=== PATIENT | male | born 1950 | race Caucasian/White ===

== ENCOUNTER 2018-03-02 16:53 | Inpatient (IN) | payer MEDICARE ==
[~2018-03-02] VITALS: Ht 182.9 cm; Wt 88.9 kg
[2018-03-02] MEDS ORDERED: SODIUM CHLORIDE 0.9% 1,000ML IVBOLUS ONE (17:30)
--- NOTE | 2018-03-02 17:36 | NUR ---
RECTAL TEMP 94.6. GUAIC NEGATIVE. PT REMAINS COOL AND HYPOTENSIVE. 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 ADD'L 1 L INITIATED NOW VIA HOT LINE FLUID WARMER. BEAR HUGGER IN PLACE. COLOR IMPROVING. SKIN IS COOL, BUT DRY. BP 94/50, MAP 70. HR 73 A FIB.
--- NOTE | 2018-03-02 17:44 | NUR ---
LABS, INCLUDING BS X2 DRAWN AT THIS TIME.
[2018-03-02] MEDS ORDERED: CARV12.52 PO (17:47)
[2018-03-02] MEDS ORDERED: AMLO10TA6 PO (17:47)
[2018-03-02] MEDS ORDERED: DABI75CA3 PO (17:47)
--- NOTE | 2018-03-02 17:47 | NUR ---
FAMILY TO GO HOME AND OBTAIN MED NAMES AND DOSES.
--- NOTE | 2018-03-02 18:01 | NUR ---
PT ATTEMPTED TO PRODUCE URINE SAMPLE. SO FAR UNABLE. TEMP IMPROVED WITH WARMED FLUIDS AND BEAR HUGGER WARMER. BP REMAINS LOW AT 95/48, BUT MAP IS ADEQUATE AT 70. PT IS AXOX4. TALKATIVE, CHEERFUL. COLOR HAS IMPROVED WITH TEMP. CHEEKS AND LIPS NOW PINK, BUT CONJUNCTIVA REMAINS PALE AND CAP REFILL IS DELAYED IN FINGER TIPS AND TOES. PT FREQUENTLY CLEAR THROAT AND NOSE, BUT DENIES SINUS PRESSURE. NO COUHGING HAS BEEN OBSERVED SINCE ARRIVAL. HOWEVER, PT REPORTS PRODUCTIVE COUGH X >1 MO, AND ALSO C/O UMBILICAL PAIN WITH COUGHING. HERNIA PRESENT EASILY REDUCES.
[2018-03-02 18:23] LABS: INTERNATIONAL NORMALIZED RATIO 1.33 (0.93-1.1); PROTHROMBIN TIME 13.9 Seconds (9.6-11.5)
[2018-03-02 18:28] LABS: ALANINE AMINOTRANSFERASE 15 U/L (12-78); ALBUMIN 3.5 g/dL (3.4-5.0); ANION GAP 9 mmol/L (5-15); CALCIUM 8.2 mg/dL (8.5-10.1); CHLORIDE 110 mmol/L (98-107)
[2018-03-02 18:37] LABS: MEAN CORPUSCULAR HEMOGLOBIN 15.1 pg (27.5-34.5); MEAN PLATELET VOLUME 8.8 fL (7.4-10.4); PLATELET COUNT 499 x10^3/uL (130-400); RED BLOOD COUNT 3.22 x10^6/uL (4.38-5.82); RED CELL DISTRIBUTION WIDTH 23.2 % (9.4-14.8)
[2018-03-02 18:38] LABS: ALKALINE PHOSPHATASE 73 U/L (45-117); BILIRUBIN,TOTAL 0.4 mg/dL (0.2-1.0); TOTAL PROTEIN 6.7 g/dL (6.4-8.2)
[2018-03-02 18:39] LABS: MEAN CORPUSCULAR HGB CONC 27.9 g/dL (33.2-36.2)
--- NOTE | 2018-03-02 18:39 | NUR ---
Hgb 4.9 Hct 17.4, Dr Eisenberg informed
[2018-03-02] MEDS ORDERED: CEFTRIAXONE PMX 2GM/50ML 50 ML ONE (18:48)
[2018-03-02 18:55] LABS: BASOPHILS % (AUTO) 0 % (0-1); EOSINOPHILS # (AUTO) 0.09 x10^3/uL (0-0.4); EOSINOPHILS % (AUTO) 1 % (1-7); LYMPHOCYTES # (AUTO) 0.88 x10^3/uL (1-3.4); LYMPHOCYTES % (AUTO) 6 % (22-44); MD MORPH REVIEW ONLY; MONOCYTES # (AUTO) 0.63 x10^3/uL (0.2-0.8); MONOCYTES % (AUTO) 4 % (2-9); NEUTROPHILS # (AUTO) 13.96 x10^3/uL (1.8-6.8); NEUTROPHILS % (AUTO) 90 % (42-75)
[2018-03-02 18:56] LABS: ANISOCYTOSIS 2+; HYPOCHROMIA 3+; MICROCYTOSIS 3+
[2018-03-02 18:58] LABS: OVALOCYTES 1+; POLYCHROMASIA 1+; TEAR DROPS 1+
[2018-03-02] MEDS ORDERED: AZITHROMYCIN 500 MG in SODIUM CHLORIDE 0.9% 250 ML IV ONE (19:00)
[2018-03-02] MEDS ORDERED: SODIUM CHLORIDE 0.9%, 250ML IVBOLUS ONE (19:00)
[2018-03-02] MEDS ORDERED: CEFTRIAXONE PMX 2GM/50ML 50 ML IV ONE (19:00)
[2018-03-02 19:01] LABS: <PLATELET ESTIMATE> INCREASED; ACANTHOCYTES 1+; LARGE PLATELETS 1+
--- NOTE | 2018-03-02 19:02 | NUR ---
2ND ABX STARTED. DR CASTRO TO BS TO REVIEW RESULTS WITH PT AND FAMILY AT BS. PT AGREES TO BLOOD TRANSFUSION. PT TO CT NOW
[2018-03-02] MEDS ORDERED: POTA10TA6 PO (19:14)
[2018-03-02] MEDS ORDERED: IRBE300T40 PO (19:14)
[2018-03-02 19:15] LABS: SCHISTOCYTES 1+
[2018-03-02] MEDS ORDERED: CART1TAB5 PO (19:24)
[2018-03-02] MEDS ORDERED: HYDR12.547 PO (19:24)
[2018-03-02 19:26] VITALS: BP 110/59
--- NOTE | 2018-03-02 19:31 | NUR ---
BLOOD TRANSFUSION INITIATED. ASHWINI GOODE APN TO BS FOR ADMISSION.
[2018-03-02 19:39] VITALS: BP 114/65
--- NOTE | 2018-03-02 19:51 | NUR ---
PT REMAINS TALKATIVE AND INTERACTIVE. VS IMPROVING. NO S/SX OF TRANSFUSION RXN.
[2018-03-02] MEDS ORDERED: SODIUM CHLORIDE 0.9% 1,000 ML IV SCH (19:57)
[2018-03-02] MEDS ORDERED: ACETAMINOPHEN 325 MG TABLET PO PRN (20:00)
[2018-03-02] MEDS ORDERED: POLYETHYLENE GLYCOL 17 GM PACKET PO PRN (20:00)
[2018-03-02] MEDS ORDERED: GUAIFENESIN/DM 200-20MG, 10ML UDC PO PRN (20:00)
[2018-03-02] MEDS ORDERED: ONDANSETRON ODT 4 MG PO PRN (20:00)
[2018-03-02] MEDS ORDERED: BISACODYL 10 MG SUPP PR PRN (20:00)
[2018-03-02 20:30] LABS: RAPID INFLUENZA A Negative (Negative); RAPID INFLUENZA B Negative (Negative)
--- NOTE | 2018-03-02 20:30 | NUR ---
CALLING REPORT TO PREETHI SALGUERO.
--- NOTE | 2018-03-02 20:36 | NUR ---
REPORT GIVEN TO PREETHI SALGUERO. PT READY FOR TRANSPORT. 1ST UNIT [facility] STILL INFUSING UPON TRANSPORT.
[2018-03-02 20:55] VITALS: BP 106/66
[2018-03-02 21:14] VITALS: BP 106/66
[2018-03-02] MEDS: DABIGATRAN 150 MG CAPSULE PO SCH (22:27)
[2018-03-02 22:48] LABS: MICROSCOPIC NOT IND
[2018-03-02 22:49] VITALS: BP 100/61
[2018-03-02 22:57] LABS: CULTURE INDICATED? NO
[2018-03-02 23:20] VITALS: BP 100/66
[2018-03-03] VITALS (12 sets, daily range): BP systolic 105–123; BP diastolic 64–107
[2018-03-03] MEDS ORDERED: FLU VAC QS18-19(4YR UP)CEL/PF 0.5ML IM-VACC ONE (01:30)
[2018-03-03 06:17] LABS: MEAN CORPUSCULAR HEMOGLOBIN 19.9 pg (27.5-34.5); MEAN CORPUSCULAR HGB CONC 30.8 g/dL (33.2-36.2); MEAN CORPUSCULAR VOLUME 64.5 fL (81-97); MEAN PLATELET VOLUME 8.7 fL (7.4-10.4); PLATELET COUNT 388 x10^3/uL (130-400); RED BLOOD COUNT 3.91 x10^6/uL (4.38-5.82)
[2018-03-03 06:21] LABS: ALANINE AMINOTRANSFERASE 16 U/L (12-78); ALBUMIN 3.4 g/dL (3.4-5.0); ANION GAP 9 mmol/L (5-15); CALCIUM 7.9 mg/dL (8.5-10.1); CHLORIDE 109 mmol/L (98-107); CREATININE 1.55 mg/dL (0.7-1.3)
[2018-03-03 06:26] LABS: ALKALINE PHOSPHATASE 72 U/L (45-117); BILIRUBIN,TOTAL 1.6 mg/dL (0.2-1.0); TOTAL PROTEIN 6.6 g/dL (6.4-8.2); TROPONIN I < 0.015 ng/mL (0.000-0.045)
[2018-03-03 06:30] LABS: BASOPHILS % (AUTO) 0 % (0-1); EOSINOPHILS # (AUTO) 0.23 x10^3/uL (0-0.4); EOSINOPHILS % (AUTO) 3 % (1-7); LYMPHOCYTES # (AUTO) 1.03 x10^3/uL (1-3.4); LYMPHOCYTES % (AUTO) 11 % (22-44); MD SCAN; MONOCYTES # (AUTO) 0.77 x10^3/uL (0.2-0.8); MONOCYTES % (AUTO) 9 % (2-9); NEUTROPHILS # (AUTO) 6.97 x10^3/uL (1.8-6.8); NEUTROPHILS % (AUTO) 77 % (42-75)
[2018-03-03] MEDS: ASCORBIC ACID 500 MG TABLET PO SCH (08:41)
[2018-03-03] MEDS: IRON SUCROSE COMPLEX 100MG/5ML IV SCH (08:41)
[2018-03-03] MEDS: DABIGATRAN 150 MG CAPSULE PO SCH ×2 (08:41→21:25)
[2018-03-03] MEDS: DOCUSATE 100 MG CAPSULE PO SCH ×2 (08:42→21:00)
[2018-03-03] MEDS: SENNA/DOCUSATE TABLET PO SCH (08:42)
[2018-03-03] MEDS: POTASSIUM CHLORIDE 20 MEQ TAB.ER.PRT PO SCH (08:42)
[2018-03-03 09:34] LABS: CREATININE,URINE RANDOM 55.5 mg/dL
[2018-03-03 10:25] LABS: OCCULT BLOOD NEGATIVE (NEGATIVE)
[2018-03-03 11:41] LABS: TROPONIN I < 0.015 ng/mL (0.000-0.045)
[2018-03-03] MEDS: SODIUM CHLORIDE 0.9% 1,000 ML IV SCH ×2 (13:04→19:21)
[2018-03-04 02:00] VITALS: BP 138/84
[2018-03-04] MEDS: SODIUM CHLORIDE 0.9% 1,000 ML IV SCH ×4 (02:42→22:37)
[2018-03-04 06:15] LABS: ANION GAP 8 mmol/L (5-15); CALCIUM 8.1 mg/dL (8.5-10.1); CHLORIDE 111 mmol/L (98-107); CREATININE 1.18 mg/dL (0.7-1.3)
[2018-03-04 06:23] LABS: MEAN CORPUSCULAR HEMOGLOBIN 19.6 pg (27.5-34.5); MEAN CORPUSCULAR HGB CONC 30.4 g/dL (33.2-36.2); MEAN CORPUSCULAR VOLUME 64.4 fL (81-97); MEAN PLATELET VOLUME 8.7 fL (7.4-10.4); PLATELET COUNT 435 x10^3/uL (130-400); RED BLOOD COUNT 4.22 x10^6/uL (4.38-5.82); RED CELL DISTRIBUTION WIDTH 35.7 % (9.4-14.8)
[2018-03-04 07:19] LABS: ACANTHOCYTES 1+; ANISOCYTOSIS 3+; BASOPHILS % (AUTO) 0 % (0-1); EOSINOPHILS # (AUTO) 0.19 x10^3/uL (0-0.4); EOSINOPHILS % (AUTO) 2 % (1-7); HYPOCHROMIA 2+; LYMPHOCYTES # (AUTO) 0.66 x10^3/uL (1-3.4); LYMPHOCYTES % (AUTO) 7 % (22-44); MD MORPH REVIEW ONLY; MICROCYTOSIS 2+; MONOCYTES # (AUTO) 0.59 x10^3/uL (0.2-0.8); MONOCYTES % (AUTO) 6 % (2-9); NEUTROPHILS # (AUTO) 8.26 x10^3/uL (1.8-6.8); NEUTROPHILS % (AUTO) 85 % (42-75); OVALOCYTES 1+; POLYCHROMASIA 1+; SCHISTOCYTES 1+; TEAR DROPS 1+
[2018-03-04 07:20] LABS: <PLATELET ESTIMATE> INCREASED; <PLT MORPHOLOGY> NORMAL PLT MORPH
[2018-03-04 08:07] VITALS: BP 137/75
[2018-03-04] MEDS: DOCUSATE 100 MG CAPSULE PO SCH ×2 (09:00→20:22)
[2018-03-04] MEDS: SENNA/DOCUSATE TABLET PO SCH (09:00)
[2018-03-04] MEDS: IRON SUCROSE COMPLEX 100MG/5ML IV SCH (09:39)
[2018-03-04] MEDS: ASCORBIC ACID 500 MG TABLET PO SCH (09:40)
[2018-03-04] MEDS: POTASSIUM CHLORIDE 20 MEQ TAB.ER.PRT PO SCH (09:40)
[2018-03-04] MEDS: DABIGATRAN 150 MG CAPSULE PO SCH (09:40)
[2018-03-04] MEDS: CARVEDILOL 12.5 MG TABLET PO SCH ×2 (11:35→17:40)
[2018-03-04] MEDS: PANTOPRAZOLE 40 MG IV IVPush SCH (14:00)
[2018-03-04 14:15] VITALS: BP 118/81
[2018-03-04 20:00] VITALS: BP 126/83
[2018-03-04] MEDS: DIPHENHYDRAMINE 25 MG CAPSULE PO PRN (22:37)
[2018-03-05] MEDS: PANTOPRAZOLE 40 MG IV IVPush SCH ×2 (01:33→14:00)
[2018-03-05 02:00] VITALS: BP 143/83
[2018-03-05] MEDS: SODIUM CHLORIDE 0.9% 1,000 ML IV SCH ×2 (05:25→11:27)
[2018-03-05 05:29] VITALS: BP 151/83
[2018-03-05] MEDS: CARVEDILOL 12.5 MG TABLET PO SCH ×2 (05:30→17:38)
[2018-03-05 06:14] LABS: MEAN CORPUSCULAR HEMOGLOBIN 19.6 pg (27.5-34.5); MEAN CORPUSCULAR HGB CONC 30.1 g/dL (33.2-36.2); MEAN PLATELET VOLUME 9.5 fL (7.4-10.4); PLATELET COUNT 438 x10^3/uL (130-400); RED BLOOD COUNT 3.93 x10^6/uL (4.38-5.82); RED CELL DISTRIBUTION WIDTH 36.6 % (9.4-14.8)
[2018-03-05 06:21] LABS: CHLORIDE 112 mmol/L (98-107)
[2018-03-05 06:28] LABS: ALANINE AMINOTRANSFERASE 15 U/L (12-78); ALBUMIN 3.4 g/dL (3.4-5.0); ALKALINE PHOSPHATASE 74 U/L (45-117); ANION GAP 6 mmol/L (5-15); BILIRUBIN,TOTAL 0.9 mg/dL (0.2-1.0); CALCIUM 7.7 mg/dL (8.5-10.1); CREATININE 1.18 mg/dL (0.7-1.3); TOTAL PROTEIN 6.2 g/dL (6.4-8.2)
[2018-03-05 06:40] LABS: BASOPHILS % (AUTO) 0 % (0-1); EOSINOPHILS # (AUTO) 0.26 x10^3/uL (0-0.4); EOSINOPHILS % (AUTO) 3 % (1-7); LYMPHOCYTES # (AUTO) 0.84 x10^3/uL (1-3.4); LYMPHOCYTES % (AUTO) 11 % (22-44); MD SCAN; MONOCYTES # (AUTO) 0.65 x10^3/uL (0.2-0.8); MONOCYTES % (AUTO) 8 % (2-9); NEUTROPHILS # (AUTO) 6.15 x10^3/uL (1.8-6.8); NEUTROPHILS % (AUTO) 78 % (42-75)
[2018-03-05] MEDS: SENNA/DOCUSATE TABLET PO SCH (07:56)
[2018-03-05] MEDS: DOCUSATE 100 MG CAPSULE PO SCH ×2 (07:56→21:00)
[2018-03-05 07:57] VITALS: BP 124/74
[2018-03-05] MEDS: IRON SUCROSE COMPLEX 100MG/5ML IV SCH (09:20)
[2018-03-05] MEDS: ASCORBIC ACID 500 MG TABLET PO SCH (09:20)
[2018-03-05] MEDS: POTASSIUM CHLORIDE 20 MEQ TAB.ER.PRT PO SCH (09:20)
[2018-03-05 14:37] VITALS: BP 130/87
[2018-03-05] MEDS ORDERED: GOLYTELY 4,000ML ORAL.SOL PO ONE (18:00)
[2018-03-05 20:00] VITALS: BP 143/81
[2018-03-05] MEDS: DIPHENHYDRAMINE 25 MG CAPSULE PO PRN (22:10)
[2018-03-06 02:00] VITALS: BP 103/64
[2018-03-06] MEDS: PANTOPRAZOLE 40 MG IV IVPush SCH ×2 (02:14→14:26)
[2018-03-06 06:20] LABS: MEAN CORPUSCULAR HEMOGLOBIN 20.1 pg (27.5-34.5); MEAN CORPUSCULAR HGB CONC 30.2 g/dL (33.2-36.2); MEAN CORPUSCULAR VOLUME 66.3 fL (81-97); RED BLOOD COUNT 3.85 x10^6/uL (4.38-5.82)
[2018-03-06 06:22] LABS: CHLORIDE 113 mmol/L (98-107)
[2018-03-06 06:30] LABS: ANION GAP 8 mmol/L (5-15); CREATININE 1.13 mg/dL (0.7-1.3)
[2018-03-06 06:47] LABS: BASOPHILS # (AUTO) 0.06 x10^3/uL (0-0.1); BASOPHILS % (AUTO) 1 % (0-1); EOSINOPHILS # (AUTO) 0.26 x10^3/uL (0-0.4); EOSINOPHILS % (AUTO) 4 % (1-7); LYMPHOCYTES # (AUTO) 0.97 x10^3/uL (1-3.4); LYMPHOCYTES % (AUTO) 16 % (22-44); MD SCAN; MEAN PLATELET VOLUME 9.5 fL (7.4-10.4); MONOCYTES # (AUTO) 0.73 x10^3/uL (0.2-0.8); MONOCYTES % (AUTO) 12 % (2-9); NEUTROPHILS # (AUTO) 4.01 x10^3/uL (1.8-6.8); NEUTROPHILS % (AUTO) 66 % (42-75); PLATELET COUNT 400 x10^3/uL (130-400)
[2018-03-06] MEDS: DOCUSATE 100 MG CAPSULE PO SCH (06:59)
[2018-03-06] MEDS: SENNA/DOCUSATE TABLET PO SCH (07:00)
[2018-03-06] MEDS: POTASSIUM CHLORIDE 20 MEQ TAB.ER.PRT PO SCH (07:00)
[2018-03-06] MEDS: ASCORBIC ACID 500 MG TABLET PO SCH (07:00)
[2018-03-06] MEDS ORDERED: MIDAZOLAM 1 MG/ML, 5ML ONE ×2 (07:10)
[2018-03-06] MEDS ORDERED: FENTANYL PF 100 MCG/2ML ONE (07:10)
[2018-03-06] MEDS: CARVEDILOL 12.5 MG TABLET PO SCH (07:40)
[2018-03-06] MEDS: IRON SUCROSE COMPLEX 100MG/5ML IV SCH (07:40)
[2018-03-06] MEDS ORDERED: SODIUM CHLORIDE 0.9% 1,000 ML IV SCH (08:30)
[2018-03-06 09:43] VITALS: BP 135/87
[2018-03-06 13:21] VITALS: BP 130/81
[2018-03-06] MEDS ORDERED: OMEP-110 PO (15:15)
[2018-03-06] MEDS ORDERED: IRON1TAB37 PO (16:05)
== END 2018-03-06 17:04 | disposition home or self-care (01) | DRG 871 ==
LOC: ED 19:48 → EDIP 19:49 → 4EST 20:47
PROVIDERS: ADMIT Internal Medicine; ATTEND Internal Medicine
PROC: 30233N1 Transfusion of Nonautologous Red Blood Cells into Peripheral Vein, Percutaneous Approach (ICD-10-PCS; principal; 2018-03-02)
PROC: 0DB98ZX Excision of Duodenum, Via Natural or Artificial Opening Endoscopic, Diagnostic (ICD-10-PCS; 2018-03-02)
PROC: 0DB58ZX Excision of Esophagus, Via Natural or Artificial Opening Endoscopic, Diagnostic (ICD-10-PCS; 2018-03-02)
DX: A41.9 Sepsis, unspecified organism (principal); N17.0 Acute kidney failure with tubular necrosis; R65.21 Severe sepsis with septic shock; D68.69 Other thrombophilia; E87.2 Acidosis; D68.32 Hemorrhagic disorder due to extrinsic circulating anticoagulants; J98.11 Atelectasis; D50.9 Iron deficiency anemia, unspecified; K20.9 Esophagitis, unspecified; I10 Essential (primary) hypertension; T68.XXXA Hypothermia, initial encounter; D47.3 Essential (hemorrhagic) thrombocythemia; I48.2 Chronic atrial fibrillation; T45.515A Adverse effect of anticoagulants, initial encounter; I95.9 Hypotension, unspecified; E86.0 Dehydration; E03.9 Hypothyroidism, unspecified; F17.210 Nicotine dependence, cigarettes, uncomplicated; J06.9 Acute upper respiratory infection, unspecified; K44.9 Diaphragmatic hernia without obstruction or gangrene; Z83.3 Family history of diabetes mellitus; Z82.49 Family history of ischemic heart disease and other diseases of the circulatory system; Z80.3 Family history of malignant neoplasm of breast; Y92.89 Other specified places as the place of occurrence of the external cause; Z79.02 Long term (current) use of antithrombotics/antiplatelets; Z79.899 Other long term (current) drug therapy
CPT/HCPCS: 36415; 71045; 71250; 80048; 80053; 81003; 82272; 82330; 82570; 82728; 83540; 83550; 83605; 83735; 84100; 84145; 84300; 84439; 84443; 84484; 85025; 85610; 85730; 86850; 86900; 86923; 87040; 87400; 88305; 90674; 93005; 96365; 96366; 96368; 99291; G0378; J0456; J0696; J1756; J2250; J3010; C9113; J7030; J7050; P9016; Q0163

== ENCOUNTER → 2018-03-25 | Outpatient (CLI) | payer MEDICARE ==
[~2018-03-25] MED LIST: AMLO10TA8 PO; CART1TAB5 PO; CARV12.52 PO; DABI75CA3 PO; HYDR12.547 PO; IRBE300T40 PO; IRON1TAB37 PO; OMEP-110 PO; POTA10TA6 PO
[2018-03-25 16:12] LABS: ALBUMIN 4.5 g/dL (3.4-5.0); ANION GAP 8 mmol/L (5-15); CALCIUM 9.1 mg/dL (8.5-10.1); CHLORIDE 107 mmol/L (98-107)
[2018-03-25 16:16] LABS: ALANINE AMINOTRANSFERASE 26 U/L (12-78); ALKALINE PHOSPHATASE 107 U/L (45-117); BILIRUBIN,TOTAL 0.5 mg/dL (0.2-1.0); CREATININE 1.26 mg/dL (0.7-1.3); TOTAL PROTEIN 8.1 g/dL (6.4-8.2)
[2018-03-25 16:23] LABS: MEAN CORPUSCULAR VOLUME 71.1 fL (81-97); MEAN PLATELET VOLUME 10.5 fL (7.4-10.4); PLATELET COUNT 483 x10^3/uL (130-400); RED BLOOD COUNT 5.39 x10^6/uL (4.38-5.82); RED CELL DISTRIBUTION WIDTH 37.2 % (9.4-14.8)
[2018-03-25 16:24] LABS: MD YES
[2018-03-25 16:29] LABS: BASOS#(MANUAL) 0.06 x10^3/uL (0-0.1); BASOS% (MANUAL) 1 % (0-1); EOS#(MANUAL) 0.37 x10^3/uL (0.0-0.4); EOS% (MANUAL) 6 % (1-7); LYMPH#(MANUAL) 1.46 x10^3/uL (1-3.4); LYMPHS% (MANUAL) 24 % (22-44); MONOS#(MANUAL) 0.37 x10^3/uL (0.3-2.7); MONOS% (MANUAL) 6 % (2-9); SEG#(MANUAL) 3.84 x10^3/uL (1.8-6.8); SEGS% (MANUAL) 63 % (42-75)
[2018-03-25 16:30] LABS: HYPOCHROMIA 2+; MICROCYTOSIS 2+; POLYCHROMASIA 1+
[2018-03-25 16:31] LABS: OVALOCYTES 1+; SCHISTOCYTES 1+
[2018-03-25 16:32] LABS: CRENATED 1+
[2018-03-25 16:35] LABS: <PLATELET ESTIMATE> INCREASED; SPHEROCYTES 1+
[2018-03-25 16:36] LABS: LARGE PLATELETS 1+
== END | disposition home or self-care (01) ==
LOC: CFH 14:17
PROVIDERS: ATTEND Internal Medicine Cardiovascular Disease
DX: I48.91 Unspecified atrial fibrillation (principal); D64.9 Anemia, unspecified; I10 Essential (primary) hypertension
CPT/HCPCS: 36415; 80053; 85025

== ENCOUNTER → 2018-04-26 | Outpatient (CLI) | payer MEDICARE ==
[2018-04-26 13:48] LABS: ANISOCYTOSIS 2+; BASOPHILS # (AUTO) 0.05 x10^3/uL (0-0.1); BASOPHILS % (AUTO) 1 % (0-1); EOSINOPHILS % (AUTO) 3 % (1-7); LYMPHOCYTES # (AUTO) 1.35 x10^3/uL (1-3.4); LYMPHOCYTES % (AUTO) 21 % (22-44); MD MORPH REVIEW ONLY; MEAN CORPUSCULAR HEMOGLOBIN 24.6 pg (27.5-34.5); MEAN CORPUSCULAR HGB CONC 31.9 g/dL (33.2-36.2); MEAN CORPUSCULAR VOLUME 77.2 fL (81-97); MEAN PLATELET VOLUME 9.8 fL (7.4-10.4); MICROCYTOSIS 1+; MONOCYTES # (AUTO) 0.52 x10^3/uL (0.2-0.8); MONOCYTES % (AUTO) 8 % (2-9); NEUTROPHILS # (AUTO) 4.23 x10^3/uL (1.8-6.8); NEUTROPHILS % (AUTO) 67 % (42-75); OVALOCYTES 1+; PLATELET COUNT 292 x10^3/uL (130-400); POLYCHROMASIA 1+; RED BLOOD COUNT 5.63 x10^6/uL (4.38-5.82); RED CELL DISTRIBUTION WIDTH 33.2 % (9.4-14.8)
[2018-04-26 13:49] LABS: <PLATELET ESTIMATE> ADEQUATE
[2018-04-26 13:50] LABS: LARGE PLATELETS 1+
== END | disposition home or self-care (01) ==
LOC: CFH 11:43
PROVIDERS: ATTEND Family Medicine
DX: D64.9 Anemia, unspecified (principal); M1A.9XX1 Chronic gout, unspecified, with tophus (tophi)
CPT/HCPCS: 36415; 84550; 85025

== ENCOUNTER → 2018-09-16 | Outpatient (CLI) | payer MEDICARE ==
[2018-09-16 15:36] LABS: BASOPHILS # (AUTO) 0.04 x10^3/uL (0-0.1); BASOPHILS % (AUTO) 1 % (0-1); EOSINOPHILS % (AUTO) 4 % (1-7); LYMPHOCYTES # (AUTO) 1.38 x10^3/uL (1-3.4); LYMPHOCYTES % (AUTO) 18 % (22-44); MD NO; MEAN CORPUSCULAR HEMOGLOBIN 28.9 pg (27.5-34.5); MEAN CORPUSCULAR HGB CONC 33.2 g/dL (33.2-36.2); MEAN CORPUSCULAR VOLUME 87.2 fL (81-97); MEAN PLATELET VOLUME 10.6 fL (7.4-10.4); MONOCYTES # (AUTO) 0.58 x10^3/uL (0.2-0.8); MONOCYTES % (AUTO) 7 % (2-9); NEUTROPHILS # (AUTO) 5.51 x10^3/uL (1.8-6.8); NEUTROPHILS % (AUTO) 71 % (42-75); PLATELET COUNT 266 x10^3/uL (130-400); RED BLOOD COUNT 4.99 x10^6/uL (4.38-5.82); RED CELL DISTRIBUTION WIDTH 16.1 % (9.4-14.8)
== END | disposition home or self-care (01) ==
LOC: CFH 14:07
PROVIDERS: ATTEND Internal Medicine
DX: D62 Acute posthemorrhagic anemia (principal)
CPT/HCPCS: 36415; 85025

== ENCOUNTER → 2019-04-09 | Outpatient (CLI) | payer MEDICARE ==
[2019-04-09 13:20] LABS: ALANINE AMINOTRANSFERASE 26 U/L (12-78); ALBUMIN 4.1 g/dL (3.4-5.0); ANION GAP 7 mmol/L (5-15); CHLORIDE 105 mmol/L (98-107); CREATININE 1.35 mg/dL (0.7-1.3)
[2019-04-09 13:26] LABS: ALKALINE PHOSPHATASE 124 U/L (45-117); BILIRUBIN,TOTAL 0.7 mg/dL (0.2-1.0); TOTAL PROTEIN 7.8 g/dL (6.4-8.2)
== END | disposition home or self-care (01) ==
LOC: CFH 10:53
PROVIDERS: ATTEND Nurse Practitioner Family
DX: R73.03 Prediabetes (principal)
CPT/HCPCS: 36415; 80053; 83036

== ENCOUNTER → 2019-07-23 | Outpatient (CLI) | payer MEDICARE ==
[2019-07-23 13:20] LABS: ALBUMIN 4.1 g/dL (3.4-5.0); ANION GAP 9 mmol/L (5-15); CALCIUM 8.9 mg/dL (8.5-10.1); CHLORIDE 106 mmol/L (98-107)
[2019-07-23 13:24] LABS: ALANINE AMINOTRANSFERASE 31 U/L (12-78); ALKALINE PHOSPHATASE 129 U/L (45-117); BILIRUBIN,TOTAL 0.7 mg/dL (0.2-1.0); CREATININE 1.29 mg/dL (0.7-1.3); TOTAL PROTEIN 7.9 g/dL (6.4-8.2)
== END | disposition home or self-care (01) ==
LOC: CFH 11:19
PROVIDERS: ATTEND Nurse Practitioner Family
DX: M10.9 Gout, unspecified (principal)
CPT/HCPCS: 36415; 80053; 84550